=== PATIENT | male | born 1990 | race Caucasian/White ===

== ENCOUNTER 2019-05-13 11:32 | Emergency (ER) | payer OTHER, SELFPAY ==
--- NOTE | 2019-05-13 11:46 | ED.URI ---
HPI - URI/Sore Throat General Chief Complaint: Upper Respiratory Infection Stated Complaint: Headache/Nausea/Congestion Time Seen by Provider: 05/13/19 11:55 Source: patient and RN notes reviewed Mode of arrival: ambulatory Limitations: no limitations History of Present Illness HPI Narrative: 28-year-old male presents with concern for body aches, chills, nausea, cough that started today. Reports to family members diagnosed with influenza in the past several days MD elicited complaint: cough Related Data Allergies Allergy/AdvReac Type Severity Reaction Status Date / Time Penicillins Allergy Mild Hives Verified 05/13/19 11:39 Review of Systems Review of Systems: Narrative: CONSTITUTIONAL: Reports malaise, chills, sweats EYES: Denies visual changes, redness, or discharge. ENT: Reports rhinorrhea, congestion. Denies sinus pain, otalgia and sore throat. CARDIOVASCULAR: Denies chest pain, palpitations, or edema. RESPIRATORY: Reports cough. Denies dyspnea. GASTROINTESTINAL: Denies abdominal pain, nausea, vomiting, diarrhea SKIN: Denies rash or itching. MUSCULOSKELETAL: Reports myalgia. NEUROLOGIC: Reports headache. All systems reviewed & are unremarkable except as noted in HPI and below PMFSH Social History Social History Gender identity (if verbalized by the patient): Male Comments At time of signature, agree with nursing past medical, surgical, social and family history. There is no relevant family history pertinent to the presenting complaint Exam Narrative: Exam Narrative: GENERAL: Well-appearing, well-nourished, and in no acute distress. HEAD: Normocephalic EYES: PERRLA, conjunctivae clear ENT: Nares clear, turbinates erythematous, clear discharge. Mucous membranes moist. TM pearly smith with dull light reflex bilaterally; no tragal tenderness. Oropharynx not erythematous without lesions. Tonsils not enlarged and without exudate, no drooling, no hoarseness, no trismus. NECK: Supple. No lymphadenopathy CHEST: Clear to auscultation, breath sounds equal. No wheezing, rhonchi, rales, or stridor. No respiratory distress, speaks in full sentences. HEART: Regular rate and rhythm. No murmur heard. Normal peripheral pulses. SKIN: Warm, dry, no rash. NEURO: Alert and oriented x3. PSYCH: Normal mood and affect Course Course Emergency Course: Patient is aware of diagnosis, understands and agrees to treatment plan. Anticipatory guidance given. Patient agrees to follow-up as directed and is aware of reasons to seek care at the emergency department. Portions of this record may have been created with voice recognition software Vital Signs Vital signs: Vital Signs Temperature 98.5 F 05/13/19 11:47 Pulse Rate 78 05/13/19 11:47 Respiratory Rate 16 05/13/19 11:47 Blood Pressure 139/82 05/13/19 11:47 Pulse Oximetry 100 05/13/19 11:47 Temperature 98.5 F 05/13/19 11:47 Pulse Rate 78 05/13/19 11:47 Respiratory Rate 16 05/13/19 11:47 Blood Pressure 139/82 05/13/19 11:47 Pulse Oximetry 100 05/13/19 11:47 Reviewed. MDM - URI/Sore Throat MDM Narrative Medical decision making narrative: Differential diagnosis considered: Strep pharyngitis, allergic rhinitis, upper respiratory tract infection, sinusitis, rhinosinusitis, nasopharyngitis. viral pharyngitis, otitis media, otitis externa, pneumonia, bronchitis, viral cough syndrome, viral syndrome, and influenza. Exam findings show no acute concerns or changes; patient is non-toxic appearing and is in no distress. Patient is appropriate for outpatient treatment and follow-up. Lab Data Attestation: I reviewed the patient's lab results. Critical Care Time Critical Care Time Critical Care Time: No Discharge Plan Discharge Clinical Impression: Influenza-like illness Patient Disposition: Home, Self-Care Condition: Stable Instructions: Influenza (ED) Additional Instructions: -Your symptoms are caused by a virus, and antibiotic does not cure woo
[2019-05-13 11:47] VITALS: BP 139/82; PULSE 78; RESP 16; TEMP 36.9; O2SAT 100
== END 2019-05-13 12:08 | disposition home or self-care (01) ==
PROVIDERS: Emergency Provider Nurse Practitioner
DX: R05 Cough (principal); R11.0 Nausea; R52 Pain, unspecified; R51 Headache
CPT/HCPCS: 87804; 99213; G0463

== ENCOUNTER 2019-06-03 11:08 | Emergency (ER) | payer OTHER, SELFPAY ==
[2019-06-03 11:21] VITALS: BP 150/77; PULSE 93; RESP 16; TEMP 37.5; O2SAT 100
--- NOTE | 2019-06-03 11:55 | ED.URI ---
HPI - URI/Sore Throat General Chief Complaint: Upper Respiratory Infection Stated Complaint: Sore Throat Time Seen by Provider: 06/03/19 11:51 Source: patient and RN notes reviewed Mode of arrival: ambulatory Limitations: no limitations History of Present Illness HPI Narrative: Patient presents today complaining of subjective fever, sore throat, fatigue since this morning. Denies cough, congestion, rhinorrhea, headache. No recent antibiotic use. He was on Tamiflu 2 to 3 weeks ago for influenza. He has tried no [id number] medication for current symptoms. MD elicited complaint: fever and sore throat Related Data Allergies Allergy/AdvReac Type Severity Reaction Status Date / Time Penicillins Allergy Mild Hives Verified 06/03/19 11:23 Review of Systems Review of Systems: Narrative: CONSTITUTIONAL: Denies body aches, chills, or sweats.+ Fever, fatigue EYES: Denies visual changes, redness, or discharge. ENT: Denies rhinorrhea, congestion, or otalgia.+ Sore throat CARDIOVASCULAR: Denies chest pain, palpitations, or edema. RESPIRATORY: Denies cough or dyspnea. GASTROINTESTINAL: Denies abdominal pain, nausea, vomiting, or diarrhea. GENITOURINARY: Denies dysuria or hematuria. SKIN: Denies rash, itching, or wounds. MUSCULOSKELETAL: Denies back pain, joint pain, or myalgia. NEUROLOGIC: Denies headache, numbness, tingling, or weakness. PSYCH: Denies depression or anxiety. PMFSH Social History Social History Gender identity (if verbalized by the patient): Male Comments At time of signature, I have reviewed and agree with nursing past medical, surgical, social and family history unless otherwise noted. Please see nursing chart for further information. There is no relevant family history pertinent to the presenting complaint Exam Narrative: Exam Narrative: GENERAL: Well-appearing, well-nourished, and in no acute distress. HEAD: Normocephalic, atraumatic. EYES: EOMI. No redness or drainage. Conjunctivae normal. ENT: Mucous membranes pink and moist. Nares clear. No rhinorrhea. TMs normal bilaterally. Throat severely erythematous with mild edema. No exudate. Uvula midline. NECK: Normal AROM. Supple. No lymphadenopathy. CHEST: No respiratory distress. Clear to auscultation. HEART: Regular rate and rhythm. No murmur appreciated. Normal peripheral pulses. EXTREMITIES: Normal range of motion. No edema. SKIN: Warm, dry, no rash. NEURO: No focal deficits. Alert and oriented x3. Gait steady. PSYCH: Normal affect. No signs of depression or anxiety. Course Vital Signs Vital signs: Vital Signs Temperature 99.5 F 06/03/19 11:21 Pulse Rate 93 06/03/19 11:21 Respiratory Rate 16 06/03/19 11:21 Blood Pressure 150/77 H 06/03/19 11:21 Pulse Oximetry 100 06/03/19 11:21 Temperature 99.5 F 06/03/19 11:21 Pulse Rate 93 06/03/19 11:21 Respiratory Rate 16 06/03/19 11:21 Blood Pressure 150/77 H 06/03/19 11:21 Pulse Oximetry 100 06/03/19 11:21 Reviewed. Pt has been instructed to follow up with his PCP regarding his elevated blood pressure today. MDM - URI/Sore Throat Differential Diagnosis Differential diagnosis: Likely upper respiratory infection, otitis media, sinusitis, viral infection, pharyngitis and other (Strep throat) Lab Data Attestation: I reviewed the patient's lab results. Labs: Strep Screen Positive Group A Strep *(Reference Range: Negative)* Critical Care Time Critical Care Time Critical Care Time: No Discharge Plan Discharge Clinical Impression: Strep throat Patient Disposition: Home, Self-Care Condition: Stable Instructions: Antibiotic Form, Strep Throat (DC) Additional Instructions: Take the azithromycin as prescribed for your strep throat. You will be contagious for 48 hours after starting the medicine. Take Tylenol or ibuprofen at home for pain or fever. Follow-up with your doctor in 3 to 4 days if symptoms are not improvin
== END 2019-06-03 12:04 | disposition home or self-care (01) ==
PROVIDERS: Emergency Provider Nurse Practitioner
DX: J02.0 Streptococcal pharyngitis (principal)
CPT/HCPCS: 87880; 99213; G0463

== ENCOUNTER 2019-06-05 07:14 | Emergency (ER) | payer OTHER, SELFPAY ==
[2019-06-05 07:18] VITALS: BP 131/80; PULSE 81; RESP 18; TEMP 37.1; O2SAT 100
[2019-06-05 07:24] VITALS: O2SAT 100
[2019-06-05 09:04] LABS: Basophils Percent Auto 0.4 % (0.2-1.2); Eosinophils Absolute Auto 0.3 K/mm3 (0-0.3); Eosinophils Percent Auto 2.4 % (0-4.4); Hematocrit 43.8 % (42.0-52.0); Hemoglobin 14.6 g/dL (14.0-18.0); Immature Granulocyte Absolute 0.03 K/mm3 (0.00-0.031); Immature Granulocyte Percent A 0.3 % (0-0.5); Lymphocytes Percent Auto 15.6 % (18.3-44.2); Mean Corpuscular HGB Conc 33.3 g/dl (32-36); Mean Corpuscular Hemoglobin 30.7 pg (26-34); Mean Platelet Volume 9.6 fl (7.4-10.4); Monocytes Absolute Auto 1.1 K/mm3 (0.1-0.6); Monocytes Percent Auto 10.5 % (2.6-8.5); Neutrophils Absolute Auto 7.3 K/mm3 (1.3-6.7); Neutrophils Percent Auto 70.8 % (45.5-73.1); Platelet Count Result 207 k/mm3 (150-375); Red Blood Count 4.76 M/mm3 (4.6-6.20); Red Cell Distribution Width 12.3 % (11.5-14.5); White Blood Count 10.3 K/mm3 (4.5-10.0)
[2019-06-05 09:17] LABS: Alanine Aminotransferase 27 U/L (4-50); Albumin Level 4.1 g/dL (3.5-5.1); Alkaline Phosphatase 66 U/L (38-126); Aspartate Amino Transferase 18 U/L (17-59); Bilirubin,Total 1.2 mg/dL (0.2-1.3); Blood Urea Nitrogen 9 mg/dL (9-20); Calcium 8.9 mg/dL (8.4-10.2); Carbon Dioxide 26 mmol/L (22-30); Chloride 106 mmol/L (98-107); Estimated Glomerular Filt Rate > 60; Glucose 95 mg/dL (75-110); Potassium 4.2 mmol/L (3.4-5.0); Sodium 139 mmol/L (137-145)
[2019-06-05] MEDS: IBUPROFEN 600 MG TABLET PO (09:29)
--- NOTE | 2019-06-05 09:29 | ED.URI ---
HPI - URI/Sore Throat General Chief Complaint: Upper Respiratory Infection Stated Complaint: ST, + Strep Time Seen by Provider: 06/05/19 09:05 Source: patient Mode of arrival: ambulatory Limitations: no limitations History of Present Illness HPI Narrative: Patient is a 28-year-old male who presents with several days duration of upper respiratory symptoms noting that he was seen a few days prior patient was started on a Z-Shiva which she has been taking patient notes no improvement after taking the Z-Shiva is also been taking Tylenol with minimal improvement patient notes he has had a cough since getting over the flu which has persisted notes moderate aching pain of the throat worse with swallowing patient denies any vomiting diarrhea or other URI symptoms and on arrival is in the room in no distress resting comfortably Related Data Allergies Allergy/AdvReac Type Severity Reaction Status Date / Time Penicillins Allergy Mild Hives Verified 06/05/19 07:21 Review of Systems Review of Systems: All systems reviewed & are unremarkable except as noted in HPI and below PMFSH Social History Social History Smoking status: Current every day smoker Gender identity (if verbalized by the patient): Male Exam Narrative: Exam Narrative: GENERAL: Well-appearing, well-nourished, and in no acute distress. HEAD: Normocephalic, atraumatic. EYES: PERRLA and EOMI. ENT: Nares clear, no rhinorrhea or epistaxis. Mucous membranes moist. Oropharynx with tonsillar hypertrophy exudate and without other lesions. Uvula midline no trismus or drooling NECK: Supple. Anterior adenopathy noted CHEST: Clear to auscultation. No respiratory distress. No wheezes rales or rhonchi HEART: Regular rate and rhythm. No murmur heard. EXTREMITIES: Normal range of motion. No edema. SKIN: Warm, dry, no rash. NEURO: No focal deficits. Alert and oriented x3. PSYCH: Normal mood and affect. Course Course Emergency Course: Patient in the room in no distress aware of case findings treatment plan and diagnosis agreeing to follow-up as directed Vital Signs Vital signs: Vital Signs Temperature 98.8 F 06/05/19 07:18 Pulse Rate 81 06/05/19 07:18 Respiratory Rate 18 06/05/19 07:18 Blood Pressure 131/80 06/05/19 07:18 Pulse Oximetry 100 06/05/19 07:18 Temperature 98.8 F 06/05/19 07:18 Pulse Rate 81 06/05/19 07:18 Respiratory Rate 18 06/05/19 07:18 Blood Pressure 131/80 06/05/19 07:18 Pulse Oximetry 100 06/05/19 07:24 MDM - URI/Sore Throat MDM Narrative Medical decision making narrative: Patient in the room with strep pharyngitis afebrile nontoxic-appearing without emesis felt appropriate for outpatient reevaluation agreeing to follow-up as directed or to return if symptoms worsen or concerns provided also with ENT Lab Data Result diagrams: 06/05/19 08:58 06/05/19 08:58 Labs: Lab Results 06/05/19 06/05/19 Range/Units 08:58 08:58 WBC 10.3 H (4.5-10.0) K/mm3 RBC 4.76 (4.6-6.20) M/mm3 Hgb 14.6 (14.0-18.0) g/dL Hct 43.8 (42.0-52.0) % MCV 92.0 (80-100) fl MCH 30.7 (26-34) pg MCHC 33.3 (32-36) g/dl RDW 12.3 (11.5-14.5) % Plt Count 207 (150-375) k/mm3 MPV 9.6 (7.4-10.4) fl Immature Gran % (Auto) 0.3 (0-0.5) % Neut % (Auto) 70.8 (45.5-73.1) % Lymph % (Auto) 15.6 L (18.3-44.2) % Gordon % (Auto) 10.5 H (2.6-8.5) % Eos % (Auto) 2.4 (0-4.4) % Baso % (Auto) 0.4 (0.2-1.2) % Lymph # (Auto) 1.60 (0.9-3.2) K/mm3 Gordon # (Auto) 1.1 H (0.1-0.6) K/mm3 Eos # (Auto) 0.3 (0-0.3) K/mm3 Baso # (Auto) 0.0 (0.0-0.1) K/mm3 Abs Immat Gran (auto) 0.03 (0.00-0.031) K/mm3 Absolute Neuts (auto) 7.3 H (1.3-6.7) K/mm3 Absolute Nucleated RBC 0.0 (0.0-0.012) K/mm3 Nucleated RBC % 0.0 (0.0-0.2) % Sodium 139 (137-145) mmol/L Potassium 4.2 (3.4-5.0) mmol/L Chloride 106 (98-107)
[2019-06-05 10:19] VITALS: BP 126/83; PULSE 81; RESP 18; O2SAT 100
== END 2019-06-05 10:21 | disposition home or self-care (01) ==
PROVIDERS: Emergency Provider Emergency Medicine
DX: J02.0 Streptococcal pharyngitis (principal); F17.210 Nicotine dependence, cigarettes, uncomplicated
CPT/HCPCS: 36415; 80053; 85025; 87077; 87081; 87804; 87880; 96372; 99283; A9270; J1100

== ENCOUNTER 2019-06-13 11:27 | Emergency (ER) | payer OTHER, SELFPAY ==
[2019-06-13 11:47] VITALS: BP 131/87; PULSE 86; RESP 18; TEMP 37.3; O2SAT 100
--- NOTE | 2019-06-13 11:56 | ED.URI ---
HPI - URI/Sore Throat General Chief Complaint: Upper Respiratory Infection Stated Complaint: Cough Time Seen by Provider: 06/13/19 11:50 Source: patient Mode of arrival: ambulatory Limitations: no limitations History of Present Illness HPI Narrative: Horacio Vences is a 28 yo male with a PMH of asthma who comes to [facility] for complaints of cough, congestion, low-grade fever. States he was treated from [facility] last week with Z-Shiva for strep throat Related Data Allergies Allergy/AdvReac Type Severity Reaction Status Date / Time Penicillins Allergy Mild Hives Verified 06/13/19 11:56 Review of Systems Review of Systems: Narrative: CONSTITUTIONAL:has fever, chills, sweats. EYES: Denies visual changes, redness, discharge. ENT: Denies rhinorrhea, has congestion, has sore throat, no otalgia. CARDIOVASCULAR: Denies chest pain, palpitations, edema. RESPIRATORY: Denies dyspnea, wheezing, cough GASTROINTESTINAL: Denies abdominal pain, nausea, vomiting, diarrhea. GENITOURINARY: Denies dysuria, hematuria, abnormal discharge SKIN: Denies rash or itching. NEUROLOGIC: Denies numbness, or focal weakness. PSYCHIATRIC: Denies anxiety or depression. PMFSH Family History Family History Other Hypertension Social History Social History (Updated 06/13/19 @ 11:59 by Joleen Hussein CNP) Smoking status: Current every day smoker Alcohol intake: current Gender identity (if verbalized by the patient): Male Comments At time of signature, I agree with nursing past medical, surgical, social and family history. There is no relevant family history pertinent to the presenting complaint. Exam Narrative: Exam Narrative: GENERAL: This is a well-nourished, well-developed patient, in mild apparent distress. HEAD: normocephalic, atraumatic. EYES: Sclera clear/white. Vision is grossly intact. EARS: External ears normal,. Hearing grossly intact. NOSE: External nose normal with nasal discharge, nares with redness, has rhinorrhea. THROAT: Mucous membranes moist, posterior pharynx erythema NECK: Neck supple, non-tender CARDIOVASCULAR: Regular rate and rhythm without murmurs, gallops, or rubs. RESPIRATORY: Clear to auscultation. Breath sounds equal bilaterally. No wheezes, rales, or rhonchi. GASTROINTESTINAL: Abdomen soft, non-tender, SKIN: warm, intact with no suspicious lesions or rash, good texture and turgor. NEURO: awake, alert, and oriented to person, place and time. There were no obvious focal neurologic abnormalities. Steady gait EXTREMITIES: Normal range of motion. N BACK: Nontender without deformity or crepitance. Course Course Emergency Course: Flu swab Started on Mucinex, cough medicine. Vital Signs Vital signs: Vital Signs Temperature 99.1 F 06/13/19 11:47 Pulse Rate 86 06/13/19 11:47 Respiratory Rate 18 06/13/19 11:47 Blood Pressure 131/87 06/13/19 11:47 Pulse Oximetry 100 06/13/19 11:47 Temperature 99.1 F 06/13/19 11:47 Pulse Rate 86 06/13/19 11:47 Respiratory Rate 18 06/13/19 11:47 Blood Pressure 131/87 06/13/19 11:47 Pulse Oximetry 100 06/13/19 11:47 MDM - URI/Sore Throat Differential Diagnosis Differential diagnosis: Likely upper respiratory infection, sinusitis, viral infection, pharyngitis and other Lab Data Labs: Influenza A Screen Negative Reference Range: Negative Influenza B Screen Negative Reference Range: Negative Discharge Plan Discharge Clinical Impression: URI (upper respiratory infection) Qualifiers: URI type: unspecified viral URI Qualified Code(s): J06.9 - Acute upper respiratory infection, unspecified Patient Disposition: Home, Self-Care Condition: Stable Instructions: Upper Respiratory Infection (ED), Upper Respiratory Infection (DC) Prescriptions: New pseudoephedrine-guaifenesin [Mucinex D Maximum Strength] 120-1,200 mg ta
== END 2019-06-13 12:41 | disposition home or self-care (01) ==
PROVIDERS: Emergency Provider Nurse Practitioner
DX: J06.9 Acute upper respiratory infection, unspecified (principal); F17.200 Nicotine dependence, unspecified, uncomplicated; J45.909 Unspecified asthma, uncomplicated
CPT/HCPCS: 87804; 99213; G0463

== ENCOUNTER 2023-07-04 07:49 | Emergency (ER) | payer SELFPAY ==
[2023-07-04 07:56] VITALS: BP 160/83; PULSE 80; RESP 16; TEMP 36.4; O2SAT 99
[2023-07-04 08:01] VITALS: O2SAT 99
[2023-07-04 08:43] LABS: Strep Group A RT-PCR NOT DETECTED (Negative)
[2023-07-04 08:55] LABS: Influenza A QL RT-PCR Negative (Negative); Influenza B QL RT-PCR Negative (Negative); SARS-CoV-2 RNA PCR Negative (Negative)
--- NOTE | 2023-07-04 09:02 | ED.GENADULT ---
HPI - General Adult General Chief complaint: Upper Respiratory Infection Stated complaint: throat discomfort Time Seen by Provider: 07/04/23 07:58 Source: patient Mode of arrival: ambulatory Limitations: no limitations History of Present Illness HPI narrative: 32-year-old otherwise healthy here with the complaints of sore throat since this morning he also states he felt swelling on the right side of the tonsil. He denies any fever or chills no shortness of breath. Onset (ago): hour(s) (4) Severity: mild Quality: aching Pain Consistency: constant Relieving factors: none Exacerbating factors: none Associated symptoms: denies other symptoms Related Data Allergies Allergy/AdvReac Type Severity Reaction Status Date / Time Penicillins Allergy Mild Hives Verified 07/04/23 07:50 Review of Systems Constitutional: Constitutional: Reports no additional constitutional complaints Eyes: Eyes: Reports no additional eye complaints ENT: Reports as per HPI Cardiovascular: Cardiovascular: Reports no additional cardiovascular complaints Respiratory: Respiratory: Reports no additional respiratory complaints Gastrointestinal: Gastrointestinal: Reports no additional gastrointestinal complaints Musculoskeletal: Musculoskeletal: Reports no additional musculoskeletal complaints PMFSH Family History Family History Other Hypertension Social History Social History Smoking status: Current every day smoker Alcohol intake: current Gender identity (if verbalized by the patient): Male Exam Narrative: GENERAL: Well-appearing, well-nourished, and in no acute distress. HEAD: Normocephalic, atraumatic. EYES: PERRLA and EOMI. ENT: Nares clear, no rhinorrhea or epistaxis. Mucous membranes moist. NECK: Supple. CHEST: Clear to auscultation. No respiratory distress. HEART: Regular rate and rhythm. No murmur heard. Normal peripheral pulses. ABDOMEN: Soft, nontender, nondistended, normal active bowel sounds. EXTREMITIES: Normal range of motion. No edema. SKIN: Warm, dry, no rash. NEURO: No focal deficits. Alert and oriented x3. PSYCH: Normal mood and affect. Course Course Emergency Course: Notified patient about his lab work. Advised him to take Tylenol ibuprofen for pain. Vital Signs Vital signs: Vital Signs Temperature 36.4 C 07/04/23 07:56 Pulse Rate 80 07/04/23 07:56 Respiratory Rate 16 07/04/23 07:56 Blood Pressure 160/83 H 07/04/23 07:56 Pulse Oximetry 99 07/04/23 07:56 Oxygen Delivery Room Air 07/04/23 07:56 Temperature 36.4 C 07/04/23 07:56 Pulse Rate 80 07/04/23 07:56 Respiratory Rate 16 07/04/23 07:56 Blood Pressure 160/83 H 07/04/23 07:56 Pulse Oximetry 99 07/04/23 08:01 Oxygen Delivery Room Air 07/04/23 08:01 Medical Decision Making Vital Signs Vital Signs: Vital Signs Temperature 36.4 C 07/04/23 07:56 Pulse Rate 80 07/04/23 07:56 Respiratory Rate 16 07/04/23 07:56 Blood Pressure 160/83 H 07/04/23 07:56 Pulse Oximetry 99 07/04/23 07:56 Oxygen Delivery Room Air 07/04/23 07:56 Temperature 36.4 C 07/04/23 07:56 Pulse Rate 80 07/04/23 07:56 Respiratory Rate 16 07/04/23 07:56 Blood Pressure 160/83 H 07/04/23 07:56 Pulse Oximetry 99 07/04/23 08:01 Oxygen Delivery Room Air 07/04/23 08:01 Lab Data Labs: Lab Results 07/04/23 Range/Units 08:05 Influenza A (RT-PCR) Negative (Negative) Influenza B (RT-PCR) Negative (Negative) SARS-CoV-2 RNA (RT-PCR) Negative (Negative) Group A Strep (PCR) Not detected (Negative) Discharge Plan Discharge Clinical Impression: Viral syndrome Patient Disposition: Home, Self-Care Condition: Stable Instructions: Viral Syndrome (ED) Prescriptions: No Action pseudoephedrine-guaifenesin [Mucinex D Maximum Strength] 120-1,200 mg table
== END 2023-07-04 09:23 | disposition home or self-care (01) ==
PROVIDERS: Emergency Provider Family Medicine
DX: B34.9 Viral infection, unspecified (principal); Z20.822 Contact with and (suspected) exposure to COVID-19
CPT/HCPCS: 87636; 87651; 99283